=== PATIENT | female | born 1935 | race Caucasian/White ===

== ENCOUNTER 2018-01-31 08:01 | Inpatient (IN) | payer MEDICARE, BC ==
[~2018-01-31 08:01] MED LIST: ACETAMINOPHEN 1,000 MG/100 ML BTL IV ONE; CELECOXIB 100 MG CAPSULE PO ONE; FAMOTIDINE 20MG TABLET PO ONE; MECLIZINE 25 MG TABLET PO ONE; METOCLOPRAMIDE 10 MG TABLET PO ONE; VANCOMYCIN HCL 1,000 MG in DEXTROSE 5 % IN WATER 250 ML IVPB ONE
[2018-01-31] MEDS ORDERED: AL HYDROX/MAG HYDROX 30ML UD PO PRN (08:15)
[2018-01-31] MEDS ORDERED: HYDROMORPHONE HCL 2 MG/ML VIAL IM PRN ×2 (08:15)
[2018-01-31] MEDS ORDERED: DIPHENHYDRAMINE HCL 25 MG CAPSULE PO PRN (08:15)
[2018-01-31] MEDS ORDERED: HYDROCODONE/APAP 5/325MG TABLET PO PRN (08:15)
[2018-01-31] MEDS ORDERED: NALOXONE 0.4 MG/1 ML VIAL IVP PRN (08:15)
[2018-01-31] MEDS ORDERED: METOCLOPRAMIDE HCL 10 MG/2 ML VIAL IVP PRN (08:15)
[2018-01-31] MEDS ORDERED: ZOLPIDEM TARTRATE 5 MG TABLET PO PRN (08:15)
[2018-01-31] MEDS ORDERED: TRAMADOL HCL 50 MG TABLET PO PRN ×2 (08:15)
[2018-01-31] MEDS ORDERED: ACETAMINOPHEN W/ CODEINE 300MG/60MG TABLET PO PRN ×2 (08:15)
[2018-01-31] MEDS ORDERED: PROMETHAZINE HCL 12.5 MG in 0.9 % SODIUM CHLORIDE 100ML 50 ML IVPB PRN (08:15)
[2018-01-31] MEDS ORDERED: ACETAMINOPHEN 325 MG TAB PO PRN (08:15)
[2018-01-31] MEDS ORDERED: BISACODYL 10 MG SUPP RC PRN (08:15)
[2018-01-31] MEDS ORDERED: KETOROLAC 30 MG/ML VIAL IVP PRN ×2 (08:15)
[2018-01-31] MEDS ORDERED: ACETAMINOPHEN W/ CODEINE 300MG/30MG TABLET PO PRN ×2 (08:15)
[2018-01-31] MEDS ORDERED: ONDANSETRON HCL IV 4 MG/2 ML VIAL IVP PRN (08:15)
[2018-01-31] MEDS ORDERED: HYDROCODONE/APAP 7.5/325MG TABLET PO PRN (08:15)
[2018-01-31] MEDS ORDERED: MAGNESIUM HYDROXIDE 30 ML UDC PO PRN (08:15)
[2018-01-31 08:38] LABS: PARTIAL THROMBOPLASTIN TIME 29.4 SECONDS (24.5-39.1); PROTHROMBIN TIME (PATIENT) 10.7 SECONDS (9.5-12.1)
[2018-01-31 09:01] LABS: ABO GROUP B; ANTIBODY SCREEN NEGATIVE (NEGATIVE); RH TYPE POSITIVE
[2018-01-31] MEDS ORDERED: DEXTROSE 5 % AND 0.9 % NACL 1,000 ML IV PRN (12:30)
[2018-01-31] MEDS: HYDROCODONE/APAP 5/325MG TABLET PO PRN ×2 (16:02→21:45)
[2018-01-31] MEDS ORDERED: VANCOMYCIN HCL 1 GM VIAL IVPB ONE (16:12)
[2018-01-31] MEDS ORDERED: TRANEXAMIC ACID 1,000 MG/10 ML ML IV ONE ×2 (16:12)
[2018-01-31] MEDS ORDERED: BUPIVACAINE 0.5% W/EPI MPF 30 ML VIAL IVP ONE (16:12)
[2018-01-31] MEDS ORDERED: BUPIVACAINE LIPOSOME 266MG/20ML VIAL IV ONE (16:12)
[2018-01-31] MEDS: FERROUS SULFATE 325 MG TAB PO SCH ×2 (16:23→21:40)
[2018-01-31] MEDS: DOCUSATE SODIUM 100 MG CAPSULE PO SCH ×2 (16:23→21:40)
[2018-01-31] MEDS: VANCOMYCIN HCL 1,000 MG in DEXTROSE 5 % IN WATER 250 ML IVPB SCH ×2 (20:11)
--- NOTE | 2018-01-31 20:17 | RADIOLOGY REPORT ---
EXAM: SHOULDER, RIGHT HISTORY: POST-OP. TECHNIQUE: A single AP view of the right shoulder was performed. FINDINGS: The patient is status post right humeral arthroplasty. No complicating process. IMPRESSION: STATUS POST RIGHT HUMERAL ARTHROPLASTY. OVERLYING POST-OP SURGICAL MAYNOR. JOB NUMBER: [id number] MTDD
[2018-01-31] MEDS: DILTIAZEM 240 MG CAP CR PO SCH (21:40)
[2018-01-31] MEDS ORDERED: LISINOPRIL 10 MG TABLET PO SCH (22:00)
[2018-01-31] MEDS ORDERED: SIMVASTATIN 10MG TABLET PO SCH (22:00)
[2018-02-01] MEDS: HYDROCODONE/APAP 5/325MG TABLET PO PRN (03:14)
[2018-02-01 06:36] LABS: HEMATOCRIT 31.5 % (35.0-47.0); HEMOGLOBIN 9.8 gm/dl (11.6-16.0)
[2018-02-01] MEDS ORDERED: PANTOPRAZOLE SODIUM 40 MG TABLET PO SCH (07:00)
--- NOTE | 2018-02-01 07:02 | Operative Note ---
DATE OF SURGERY: 01/31/2018. PREOPERATIVE DIAGNOSES: RIGHT GLENOHUMERAL ENDSTAGE ARTHROSIS. POSTOPERATIVE DIAGNOSES: RIGHT GLENOHUMERAL ENDSTAGE ARTHROSIS. OPERATION: 1. Right total shoulder arthroplasty. 2. Biceps tenodesis. SURGEON: Hugh Matute M.D. ANESTHESIA: General endotracheal, Denise Smith CRNA. COMPLICATIONS: None. ESTIMATED BLOOD LOSS: A total of 200 mL. OPERATIVE FINDINGS: [id number] glenohumeral arthrosis. COMPONENTS PLACED: [employer]ech Equinoxe Total Shoulder Arthroplasty system with a size 11 humeral stem, metal replicator plate, a 44 mm x 17 mm eccentric head component, small glenoid component, and 2.0 gm of Vancomycin cement. INDICATIONS: This is an 82-year-old female with endstage shoulder arthrosis. She has failed nonoperative treatment and scheduled for total shoulder arthroplasty. I explained to her all risks and benefits of surgery in detail for the diagnosis and procedures including but not limited to infection, nerve injury, vessel injury, persistent pain, stiffness, numbness and tingling in her shoulder, periprosthetic fracture, the need for resection arthroplasty, the fact that components can loosen, blood clot, and the need for further procedures. All of her questions were answered. The treatment and course were outlined and she agreed to proceed. PROCEDURE: The patient brought to the operating room, placed in the beach chair position, and prepared for surgery. General endotracheal anesthesia was induced. Her right upper extremity and shoulder were prepped and draped in sterile fashion. The right shoulder was prepped again with ChloraPrep and draped. Intraoperative time out was performed. Next an anterior deltopectoral approach was marked and infiltrated with 0.5% Marcaine with epinephrine with our mixture of Exparel and tranexamic acid. The skin and subcutaneous tissue was dissected down to the deltopectoral interval. The cephalic vein was retracted medially and branches were cauterized laterally. I brought in the self retainer and released the upper pectoralis major partially. Dissected deep lateral to the conjoint tendon. Clavipectoral fascia was released. The subdeltoid plane was released, and the self retainers were brought in. I identified the biceps groove. Opened up the biceps groove up to the rotator interval to the glenoid rim, and cut and released the biceps tendon. Labral tenodesis was repaired. Did a Elver osteotomy of the lesser tuberosity and tagged it with #2 Vicryl. We thoroughly inspected the rotator cuff, and it was intact superiorly. Next, we externally rotated the shoulder. The humeral head was severely eroded ; about 50 percent of the width of the height was remaining. Very sclerotic, hardened bone. Next, we resected the humeral head in 20 degrees retrograde using a resection guide, protecting the rotator cuff superiorly with the retractor. Next, we started reaming the humeral canal and preparing that. Reamed out to a size 11 and stopped there. Broached to 11 and had a good fit. Next, we irrigated the humeral canal. Placed the bone plug distally with cement restrictor and placed two #5 five-wire sutures in and out across our Elver osteotomy site, leaving the loops out. Injected the cement with a third-generation cement technique. Removed the suction catheter and inserted the real humeral stem giving 15 to 20 degrees of retroversion until it was flush with our cut, teasing the sutures around the stem for added fixation. Next, I placed the protective metal cap over the humerus and exposed the glenoid. I placed the Fukuda retractor posteriorly and Bankart retractor anteriorly. Circumferentially released the subscapularis tendon first, protecting the axillary nerve at all times. I then released and resected the labrum around the periphery of the glenoid. The glenoid was completely devoid of any articular cartilage. Next, we released the capsule inferiorly. I palpated around the anterior glenoid neck to visualize the endpoint for the glenoid vault. Drilled the size to be a small. Drilled a small starting pilot plant supervisor hole first and then drilled the central peg reamer hole. I then inserted the small reamer and reamed the glenoid flush lightly with a few millimeters of bone. Next, I inserted the peg hole drill guide and drilled the other three peg holes. I placed a trial glenoid small component and it fit nicely without rocking superiorly, inferiorly, anteriorly or posteriorly. Next I mixed cement for that. Drilled several small drill holes in the glenoid face. Once the cement became tacky, we impacted that into the peg holes and then inserted the glenoid component. I held it there until the cement hardened. I then incised the humeral diameter to be 44 mm. I offset it superiorly and posteriorly and offset using our replicator plate guide, and we set the replicator plate and tightened down the set screw for that. Next, we used a combination of range of motion and stability and humeral head height. The best combination was a 44 + 17 mm humeral head component offset posterosuperiorly. This allowed for 50 percent translucent anteroposterior. Good rotation cuff tension without overstocking and full range of motion. Next, we cleaned and dried the trunnion and replicator plate and impacted down the real humeral head in the same orientation. We reduced the shoulder and found that range of motion felt the same. We irrigated copiously. We injected deep with 0.5% Marcaine with epinephrine and tranexamic acid and Exparel mixture. Next, we repaired the subscapularis tendon to our Elver osteotomy site using the previously placed #5 five-wire sutures with a Han-Evans stitch at the bone and tendon junction medially. The lateral limb was placed through the biceps tendon to repair it back into the groove. I tied that down over the top. We next tucked the biceps tendon underneath the rotator interval using a previously placed #2 Vicryl with a tag stitch and tucked it down with a shoestring type stitch from medial to lateral. I irrigated copiously. Repaired our upper pectoralis major. Partially released with figure of eight #2 Vicryl. Irrigated again with the Hemovac draining deep. Closed the deltopectoral interval with interrupted #1 at the bottom as marking stitches. Closed the skin deep with #2-0 Vicryl and malu. I again injected along there. A sterile dressing was applied. Intraoperative x-ray revealed good fit and orientation of bones. The patient tolerated the procedures well. No intraoperative complications. Sponge, needle, and blade counts correct. Recovery room stable, neurovascularly intact. She will be discharged to the floor for pain control and intravenous antibiotics with total shoulder protocol. She will be discharged home tomorrow. JOB NUMBER: [id number] cc: Jacob Avila M.D. PJ
[2018-02-01] MEDS: DOCUSATE SODIUM 100 MG CAPSULE PO SCH (09:16)
[2018-02-01] MEDS: FERROUS SULFATE 325 MG TAB PO SCH (09:16)
[2018-02-01] MEDS: VANCOMYCIN HCL 1,000 MG in DEXTROSE 5 % IN WATER 250 ML IVPB SCH ×2 (09:17)
[2018-02-01] MEDS: DILTIAZEM 240 MG CAP CR PO SCH (09:17)
[2018-02-01] MEDS ORDERED: ENOXAPARIN 100 MG/ML SYR SQ SCH (10:00)
[2018-02-01] MEDS ORDERED: RIVAROXABAN 10 MG TABLET PO SCH (10:00)
[2018-02-01] MEDS ORDERED: FUROSEMIDE 20 MG TABLET PO SCH (10:00)
[2018-02-01] MEDS ORDERED: CELECOXIB 100 MG CAPSULE PO SCH (10:00)
[2018-02-01] MEDS ORDERED: WARFARIN 5 MG TAB PO SCH (10:00)
--- NOTE | 2018-02-01 10:32 | Rehab Evaluation ---
Patient Information - Patient Information Diagnosis: R shoulder DJD Ordered Treatment: PT Evaluate and Treat Status: Initial Evaluation Surgery: Yes (Total shoulder replacement) Date of Surgery: 01/31/18 Past Medical/Surgical Hx: PAST MEDICAL/SURGICAL HISTORY Past Surgical History diann cardioversion PMH - Respiratory Hx Respiratory Disorders Yes Hx of SOB Yes: occassionally PMH - Cardiovascular Hx Cardiovascular Disorders Yes Hx Abnormal EKG Yes Hx Edema Yes Hx Irregular Heartbeat Yes: a fib dx'd 2009 Hx Vascular Disease Yes: varicose veins LE Hx Heart Murmur Yes: pt has "leaky" valve not sure which valve Exercise Tolerance Fair PMH - Neuro Hx Neurological Disorders Yes Hx Dizziness Yes: when she gets up to fast Hx Weakness Yes: right shoulder PMH - GI Hx Gastrointestinal Disorders Yes Hx Gastroesophageal Reflux Yes Hx Hiatal Hernia Yes Hx Nausea/Vomiting Yes: "bouts" of vomitting Comment: "bouts" of diarrhea PMH - Hx Genitourinary Disorders Yes Hx Bladder Problem Yes: a little leaking urgency Hx Urinary Tract Infection Yes PMH - Endocrine Hx Endocrine Disorders No Hx Diabetes No Hx Thyroid Disease No PMH - Musculoskeletal Hx Musculoskeletal Disorders Yes Hx Arthritis Yes Hx Osteoporosis Yes: on meds PMH - Psych Hx Psychiatric Problems Yes Hx Anxiety Yes: sometimes Hx Depression Yes: mild PMH - Hematology/Oncology Hx Hematology/Oncology Yes Disorders Hx Bruising Yes: on coumadin Premorbid Status: Detail (The patient was independent with all moblity and ambulating without device prior to surgery.) Social History: Detail (The patient lives with spouse in one story house with 4 steps at the enterance with one railing. The patient's bathroom is equipped with a walk in woer with a tub seat and grab bars and an elevated toilet seat with grab bars. The patient was previously completing all business performance analyst independently but will have assist from post surgery.) Precautions: [place], Fall, Other (TSR precautions per Dr. Matute's protocal including R shoulder immobilization with sling.) - Time With Patient Total Time Spent With Patient (Min): 30 Treatment Procedures: Detail (Initial Evaluation.) Subjective Information - Subjective Information Per Patient (The patient had complaints of R shoulder pain level 2/3 pain using 0-10 pain scale.) Objective Data - Mental Status Patient Orientation: Oriented x3 - Visual Perception Appears within normal limits for therapeutic activities - ROM Within normal limits (The patient's LE AROM is WNL.), Not within normal limits ( R shoulder is limited within TSR precautions.) - Strength/Tone Within normal limits (The patient's strength was not formally assessed however is within functional limits.) - Bed Mobility Needs Assist (The patient required minimal PA of 1 with supine to sit with head of the bed elevated.) - Transfers Independent (The patient was independent with sit to and from stand transfer.) - Balance Balance Sitting: Good Balance Standing: Good - Gait Detail (The patient ambulated independently without device a distance of 80 feet x 1 and supervision for safety only with ambulation on 3 stairs with use of one railing using proper technique. The patient ambulates with decreased bilateral knee flexion and decreased heel to toe weight transfer due to LE arthritic changes per her report.) Therapy Assessment - Therapy Assessment Detail (The patient was independent with transfers and ambulation on levels and stairs. Patient's will be present to assist with bed mobility. The patient does not require inpatient PT. OT instructed the patient in UE HEP and TSR precautions. The patient is to receive Home Care Services.) Problem List - Problem List Physical Therapy Problem List: Detail (The patient has limited R shoulder AROM and strength as to be expected following TSR surgery.) Goals - Goals Physical Therapy Goals: All inpatient PT goals have been met. Prognosis - Prognosis Good Plan - Plan Physical Therapy Plan: Patient is discharged from inpatient PT and is to recieved Home Care Services.
[2018-02-01] MEDS: HYDROCODONE/APAP 7.5/325MG TABLET PO PRN ×2 (11:05→16:34)
--- NOTE | 2018-02-01 11:23 | Rehab Evaluation ---
Patient Information - Patient Information Diagnosis: R shoulder DJD Ordered Treatment: OT Evaluate and Treat Status: Initial Evaluation Surgery: Yes (Total shoulder replacement) Date of Surgery: 01/31/18 Past Medical/Surgical Hx: PAST MEDICAL/SURGICAL HISTORY Past Surgical History diann cardioversion PMH - Respiratory Hx Respiratory Disorders Yes Hx of SOB Yes: occassionally PMH - Cardiovascular Hx Cardiovascular Disorders Yes Hx Abnormal EKG Yes Hx Edema Yes Hx Irregular Heartbeat Yes: a fib dx'd 2009 Hx Vascular Disease Yes: varicose veins LE Hx Heart Murmur Yes: pt has "leaky" valve not sure which valve Exercise Tolerance Fair PMH - Neuro Hx Neurological Disorders Yes Hx Dizziness Yes: when she gets up to fast Hx Weakness Yes: right shoulder PMH - GI Hx Gastrointestinal Disorders Yes Hx Gastroesophageal Reflux Yes Hx Hiatal Hernia Yes Hx Nausea/Vomiting Yes: "bouts" of vomitting Comment: "bouts" of diarrhea PMH - Hx Genitourinary Disorders Yes Hx Bladder Problem Yes: a little leaking urgency Hx Urinary Tract Infection Yes PMH - Endocrine Hx Endocrine Disorders No Hx Diabetes No Hx Thyroid Disease No PMH - Musculoskeletal Hx Musculoskeletal Disorders Yes Hx Arthritis Yes Hx Osteoporosis Yes: on meds PMH - Psych Hx Psychiatric Problems Yes Hx Anxiety Yes: sometimes Hx Depression Yes: mild PMH - Hematology/Oncology Hx Hematology/Oncology Yes Disorders Hx Bruising Yes: on coumadin Premorbid Status: Detail (The patient was independent with all moblity and ambulating without device prior to surgery.) Social History: Detail (The patient lives with spouse in one story house with 4 steps and jae hand railings at the entrance. The patient's bathroom is equipped with a walk in shower with a shower seat and grab bars and an elevated toilet seat with grab bars. 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 Matute's protocol including R shoulder immobilization with sling.) - Time With Patient Total Time Spent With Patient (Min): 60 Treatment Procedures: Detail (OT eval low complexity) Subjective Information - Subjective Information Per Patient Objective Data - Pain Pain Present: Yes (2-3/10) - Mental Status Patient Orientation: Oriented x3 - Visual Perception Appears within normal limits for therapeutic activities - ROM Not within normal limits (Right shoulder not tested due to surgical precautions , right elbow, wrist and hand WNL; left UE AROM overall WNL) - Strength/Tone Not within normal limits (Right UE not tested due to surgical precautions, left UE strength WNL) - Coordination Appears within normal limits for therapeutic activities - Bed Mobility Needs Assist (Pt required min assist for supine to sit) - Transfers Independent (Ind with sit to stand from toilet, EOB and chair) - Balance Balance Sitting: Good Balance Standing: Good - Sensation Intact (Pt reports slight numbness in right hand since surgery but it is improving) - Gait Detail (Pt ambulating in room Indly.) - ADL's/IADL's Detail (Pt educated re: donning/doffing sling as well as one handed shower and dressing techniques. She required min assist to doff and don sling, she was Ind with toileting and donning pants, she required min assist to tie shoes and she was able to don shirt with verbal cues for technique. She reports spouse will assist as needed and she feels she will not have any trouble as he had the same surgery recently.) Therapy Assessment - Therapy Assessment Detail (Pt was educated and demonstrated learning of right UE elbow, forearm, wrist and hand AROM exercises as well as putty exercises. Written HEP and yellow putty were provided. She will require assist for donning and doffing of sling and tying shoes, spouse will assist.) Problem List - Problem List Occupational Therapy Problem List: Detail (No current IP OT problems identified. ) Goals - Goals Occupational Therapy Goals: No current IP OT goals identified. Prognosis - Prognosis Good Plan - Plan Occupational Therapy Plan: Discharge from IP OT at this time. Thank you for this referral.
[2018-02-01] MEDS ORDERED: DEXAMETHASONE 4 MG/ML 1ML VIAL IVP ONE (12:55)
[2018-02-01] MEDS ORDERED: HYDROMORPHONE HCL 2 MG/ML VIAL IV ONE (12:55)
[2018-02-01] MEDS ORDERED: LIDOCAINE 1% MDV (10MG/ML) 20ML VIAL SQ ONE (12:55)
[2018-02-01] MEDS ORDERED: PHENYLEPHRINE HCL 10 MG/ML VIAL IVP ONE (12:55)
[2018-02-01] MEDS ORDERED: PROPOFOL 10 MG/ML VIAL IV ONE (12:55)
[2018-02-01] MEDS ORDERED: MIDAZOLAM HCL 2MG/2ML VIAL IV ONE (12:55)
[2018-02-01] MEDS ORDERED: SEVOFLURANE 250 ML INH ONE (12:55)
[2018-02-01] MEDS ORDERED: METOPROLOL TART 5 MG/5 ML VIAL IV ONE (12:55)
[2018-02-03] MEDS ORDERED: WARFARIN 2.5 MG TAB PO SCH (10:00)
--- NOTE | 2018-02-08 17:01 | Discharge Summary ---
HISTORY: This is an 82-year-old female with endstage right shoulder arthrosis. Failed nonoperative treatment and was scheduled for total shoulder arthroplasty. HOSPITAL COURSE: The patient admitted the date of procedure, 01/31. She tolerated the procedure well. She had a Hemovac drain placed with about 200 mL of blood loss. Hospital course was uncomplicated. She had acute asymptomatic postop blood loss anemia. She did well with therapy and the drain was pulled on postop day 1 and she was discharged home with home therapy nurse with [facility]. She will follow-up in two weeks. Continue preadmission medications plus sleeping pill, pain pill, iron, and dressing changed three to five days. She has a home therapy nurse with [facility]. cc: Dr. Jacob Avila in [place], [place] JOB NUMBER: [id number] MTDD
== END 2018-02-01 17:10 | disposition home health service (06) | DRG 483 ==
LOC: MEDSURG 08:01
PROVIDERS: ADMIT Orthopaedic Surgery; ATTEND Orthopaedic Surgery
PROC: 0RRJ0JZ Replacement of Right Shoulder Joint with Synthetic Substitute, Open Approach (ICD-10-PCS; principal; 2018-01-31 10:00)
DX: M19.011 Primary osteoarthritis, right shoulder (principal); I48.91 Unspecified atrial fibrillation; Z79.01 Long term (current) use of anticoagulants; E78.00 Pure hypercholesterolemia, unspecified; K21.9 Gastro-esophageal reflux disease without esophagitis; M81.0 Age-related osteoporosis without current pathological fracture
CPT/HCPCS: 85014; 85018; 85610; 85730; 86850; 86900; 86901; C1776; J1650; J2370; J7060